=== PATIENT | male | born 1955 | race African-American/Black ===

== ENCOUNTER 2021-09-19 04:06 | Day surgery (SDC) | payer OTHER ==
[2021-09-18 10:30] VITALS: BMI 45.5
[2021-09-19] MEDS ORDERED: MIDAZOLAM HCL 2 MG/2 ML SINGLE DOSE VIAL ONE ×3 (07:57→08:07)
[2021-09-19 09:54] VITALS: BP 141/86; PULSE 82; TEMP 98.7
== END 2021-09-19 10:15 | disposition home or self-care (01) ==
LOC: JASU-SURG 04:06
PROVIDERS: ATTEND Urology
PROC: 0TF3XZZ Fragmentation in Right Kidney Pelvis, External Approach (ICD-10-PCS; principal; 2021-09-19 08:00)
DX: N20.0 Calculus of kidney (principal)